=== PATIENT | female | born 1955 | race Caucasian/White ===

== ENCOUNTER → 2017-02-27 | Outpatient (CLI) | payer BC ==
[2016-03-08 14:53] VITALS: BP 153/91
--- NOTE | 2017-03-02 16:43 | MG ---
HISTORY: SCREENING Comparison: January 05, 2015 and February 10, 2016 FINDINGS: Bilateral CC and MLO projections of the right and left breast were obtained. Scattered fibroglandula r tissue is seen to be present without significant interval change. No suspicious architectural dist ortion, mass or clustered microcalcifications can be observed to suggest malignancy. No skin thicken ing or nipple retraction is appreciated. No pathological lymphadenopathy can be identified. Benign- appearing calcifications are noted within the right and left breast. IMPRESSION: NO RADIOGRAPHIC EVIDENCE OF MALIGNANCY. ACR CATEGORY 2 - benign findings. FOLLOW-UP EXAM 1 YEAR. Diagnostic CAD was utilized and reviewed. * 0 (ZERO) - ASSESSMENT INCOMPLETE; ADDITIONAL IMAGING IS NEEDED. * 1/1 (ONE) - NEGATIVE. * 2/II (TWO) - BENIGN FINDINGS. * 3/III (THREE) - PROBABLY BENIGN FINDING; SHORT INTERVAL FOLLOW-UP SUGGESTED. * 4/IV (FOUR) - SUSPICIOUS ABNORMALITY; BIOPSY SHOULD BE CONSIDERED. * 5/V (FIVE) - HIGHLY SUSPICIOUS OF MALIGNANCY; BIOPSY SHOULD BE PERFORMED. A NEGATIVE X-RAY REPORT SHOULD NOT DELAY BIOPSY IF A DOMINANT OR CLINICALLY SUSPICIOUS MASS IS PRESENT; 4 TO 8 PERCENT OF CANCERS ARE NOT IDENTIFIED BY X-RAY. A NEGA TIVE REPORT MAY REINFORCE THE CLINICAL IMPRESSION. ADENOSIS AND DENSE BREASTS MAY OBSCURE AN UNDERLY ING NEOPLASM. Reported By:
== END ==
LOC: RAD 14:09
PROVIDERS: ATTEND Obstetrics & Gynecology
DX: Z12.31 Encounter for screening mammogram for malignant neoplasm of breast (principal)
CPT/HCPCS: 77067

== ENCOUNTER → 2017-03-07 | Outpatient (CLI) | payer BC ==
[2016-03-08 14:53] VITALS: BP 153/91
--- NOTE | 2017-03-07 17:28 | RAD ---
HISTORY: Pain Study: Left foot series Comparison: 01/20/2015 Findings: There is a mildly displaced fracture along the mid and distal shaft of the 5th metatarsal bone . The joint spaces are intact. The tarsal bones are intact. The bones are osteopenic. IMPRESSION: Mildly displaced fracture along the distal 5th metatarsal bone. Reported By:
== END | disposition home or self-care (01) ==
LOC: RAD 16:28
PROVIDERS: ATTEND Nurse Practitioner Family
DX: M79.672 Pain in left foot (principal); R22.42 Localized swelling, mass and lump, left lower limb; S92.352A Displaced fracture of fifth metatarsal bone, left foot, initial encounter for closed fracture; X58.XXXA Exposure to other specified factors, initial encounter
CPT/HCPCS: 73630

== ENCOUNTER → 2017-03-10 | Outpatient (CLI) | payer BC ==
[2016-03-08 14:53] VITALS: BP 153/91
[2017-03-10 13:47] LABS: BASOPHILS # (AUTO) 0.1 X10^3/uL (0.0-0.1); BASOPHILS % (AUTO) 1.2 % (0.2-1.0); EOSINOPHILS # (AUTO) 0.3 x10^3/uL (0.0-0.2); EOSINOPHILS % (AUTO) 5.3 % (0.9-2.9); HEMATOCRIT 42.6 % (36.0-47.0); LYMPHOCYTES # (AUTO) 2.4 X10^3/uL (1.3-2.9); LYMPHOCYTES % (AUTO) 48.8 % (21.0-51.0); MEAN CORPUSCULAR HEMOGLOBIN 30.7 pg (27.0-34.0); MEAN CORPUSCULAR HGB CONC 35.2 g/dL (33.0-35.0); MEAN CORPUSCULAR VOLUME 87.2 fL (80.0-100.0); MEAN PLATELET VOLUME 7.5 fL (7.4-11.0); MONOCYTES # (AUTO) 0.3 x10^3/uL (0.3-0.8); NEUTROPHILS # (AUTO) 1.8 x10^3/uL (2.2-4.8); NEUTROPHILS % (AUTO) 37.7 % (42.0-75.0); PLATELET COUNT 303 X10^3/uL (150.0-450.0); RED BLOOD COUNT 4.88 X10^6/uL (3.5-5.4); RED CELL DISTRIBUTION WIDTH 13.2 % (11.6-16.5); WHITE BLOOD COUNT 4.8 X10^3/uL (3.6-10.0)
[2017-03-10 13:59] LABS: BLOOD UREA NITROGEN 15 mg/dL (7-18); CALCIUM 8.8 mg/dL (8.5-10.1); CARBON DIOXIDE 33.8 mmol/L (21-32); CHLORIDE 105 mmol/L (98-107); CREATININE 1.01 mg/dL (0.55-1.02); SODIUM 141 mmol/L (136-145); eGFR BLACK RACES > 60 (>60); eGFR NON BLACK RACES 59 (>60)
== END ==
LOC: LAB 13:31
PROVIDERS: ATTEND Podiatrist Foot & Ankle Surgery
DX: Z01.818 Encounter for other preprocedural examination (principal); Z01.811 Encounter for preprocedural respiratory examination; Z79.899 Other long term (current) drug therapy; S92.352A Displaced fracture of fifth metatarsal bone, left foot, initial encounter for closed fracture; X58.XXXA Exposure to other specified factors, initial encounter
CPT/HCPCS: 36415; 80048; 85025

== ENCOUNTER → 2017-05-11 | Outpatient (CLI) | payer BC ==
[2016-03-08 14:53] VITALS: BP 153/91
== END ==
LOC: LAB 15:58
PROVIDERS: ATTEND Podiatrist Foot & Ankle Surgery
DX: E55.9 Vitamin D deficiency, unspecified (principal)
CPT/HCPCS: 36415; 82306

== ENCOUNTER 2021-07-19 14:00 | Observation (INO) ==
[2021-07-19 14:13] VITALS: BMI 23.6
[2021-07-19 14:55] LABS: EOSINOPHILS # (AUTO) 0.2 x10^3/uL (0.0-0.2); EOSINOPHILS % (AUTO) 4.6 % (0.9-2.9); HEMOGLOBIN 14.9 g/dL (12.0-16.0); LYMPHOCYTES # (AUTO) 2.3 X10^3/uL (1.3-2.9); LYMPHOCYTES % (AUTO) 54.7 % (21.0-51.0); MEAN CORPUSCULAR HEMOGLOBIN 30.7 pg (27.0-34.0); MEAN CORPUSCULAR HGB CONC 34.8 g/dL (33.0-35.0); MEAN CORPUSCULAR VOLUME 88.2 fL (80.0-100.0); MEAN PLATELET VOLUME 7.2 fL (7.4-11.0); MONOCYTES # (AUTO) 0.3 x10^3/uL (0.3-0.8); NEUTROPHILS # (AUTO) 1.4 x10^3/uL (2.2-4.8); NEUTROPHILS % (AUTO) 32.7 % (42.0-75.0); PLATELET COUNT 321 X10^3/uL (150.0-450.0); RED BLOOD COUNT 4.87 X10^6/uL (3.5-5.4); RED CELL DISTRIBUTION WIDTH 13.1 % (11.6-16.5); WHITE BLOOD COUNT 4.2 X10^3/uL (3.6-10.0)
--- NOTE | 2021-07-19 15:00 | RAD ---
HISTORYShortness of breathSTUDYChest AP [id number]/16/2021FINDINGSHear t size is normal. Mony are normal. Aorta is calcified. Lung hartmann are clear. No pleural effusions are identified. Bony thorax is unremarkable.IMPRESSIONNo significant abnormality identifiedElectronically signed by: VON RICHARDSON (Jul 19, 2021 14:59:01)
[2021-07-19 15:17] LABS: ALANINE AMINOTRANSFERASE 28 Units/L (12-78); ALBUMIN 3.6 g/dL (3.4-5.0); ALKALINE PHOSPHATASE 49 Units/L (46-116); ASPARTATE AMINO TRANSFERASE 17 Units/L (15-37); BLOOD UREA NITROGEN 15 mg/dL (7-18); CALCIUM 9.2 mg/dL (8.5-10.1); CARBON DIOXIDE 27.1 mmol/L (21-32); CHLORIDE 104 mmol/L (98-107); CKMB % 1.8 % (<4); COR NA(FOR HYPERGLY) 141 mmol/L (136-145); CREATINE KINASE 79 Units/L (26-192); CREATINE KINASE MB 1.4 ng/mL (0-4.0); CREATININE 0.87 mg/dL (0.55-1.02); SODIUM 140 mmol/L (136-145); TOTAL PROTEIN 7.2 g/dL (6.4-8.2); eGFR NON BLACK RACES > 60 (>60)
--- NOTE | 2021-07-19 15:18 | DR.GENAD ---
HPI Time Seen Time Seen by Provider: 07/19/21 15:17 PCP Primary Care Physician: MAR GUZMAN HPI Comment HPI Comment: PATIENT IS 65YR OLD FEMALE IN ER WITH INCREASING SOB AND LEFT ARM SORENESS AND SOB WITH DIZZINESS FOR FEW DAYS. NO FEVER, DYSURIA OR DIARRHEA. Complaint/Symptoms Chief Complaint Doctors Comments: SORENESS LEFT ARM AND INCREASIN SOB THIS WEEK THIS WEEK. Chief Complaint:: THROAT FEELING NUMB AND THEN FEELING BAD. LIGHT HEADED AND PAIN TO THE ARM. PT WAS NOTED TO BE HYPERVENTILATING IN WAITING ROOM. AND FINGERS WERE KRISHNA. INCREASED SHORTNESS OF BREATH THIS WEEK WITH SORENESS TO THE LEFT ARM. COVID-19 Coronavirus risk:travel/contact w/high risk person: No Has patient experienced Coronavirus symptoms: No Nurses notes reviewed Nurses Notes Review: No Source History Provided: Patient Mode of Arrival Mode of Arrival: Ambulatory Timing Onset of Chief Complaint: 07/19/21 Came on: Suddenly Duration Duration: Constant Duration: Days Modifying Factors Worsens:: EXERTION. Improves:: REST. PMH PMH Past Medical History: Yes Past Medical History: Hypertension Past Surgical History: Yes Surgical History: Ortho Surgery Family History History of Family Medical Conditions: Yes Family Medical History: Cancer, Coronary Artery Disease, Heart Failure and Hypertension Social History Alcohol Use: None Do you use any recreational Drugs:: No Lives With: Family Lives Where: Home Travel Risk Coronavirus risk:travel/contact w/high risk person: No Has patient experienced Coronavirus symptoms: No Infectious screening In the last 2 months have you had wt loss of >10#?: NO Have you had fever, night sweats or hemotysis?: No Have you traveled outside the country in the last 6 months?: No Isolation: Standard ROS Review of Systems Constitutional: See HPI, Weakness and Fatigue; negative Fever Eyes: No Symptoms Reported and See HPI ENTM: See HPI, Nose Discharge and Nose Congestion Respiratoy: See HPI, Moist Cough and Short of Breath; negative Wheezing Cardiovascular: No Symptoms Reported and See HPI; negative Chest Pain Gastrointestinal/Abdominal: No Symptoms Reported and Abdominal Pain; negative Diarrhea and Vomiting Genitourinary: No Symptoms Reported and See HPI; negative Dysuria, Frequency and Hematuria Neurological: No Symptoms Reported, See HPI, Headache, Weakness and Dizziness Musculoskeletal: No Symptoms Reported and See HPI; negative Back Pain and Muscle Pain Integumentary: No Symptoms Reported and See HPI; negative Rash and Juandice Hematologic/Lymphatic: No Symptoms Reported and See HPI; negative Easy Bruising Endocrine: No Symptoms Reported and See HPI Psychiatric: No Symptoms Reported and See HPI All Other Systems: Reviewed and Negative PE Vital Signs Vitals: Temperature 96.4 F Pulse Rate 70 Respiratory Rate 18 Blood Pressure [Right Arm] 118/67 Blood Pressure 133/72 O2 Sat by Pulse Oximetry 98 General Limitations: No Limitations General Appearance: Alert and In No Apparent Distress Head Head Exam: Normal Inspection Eyes Eye exam: Normal Appearance and PERRL; negative Scleral Icterus and Conjunctival Injection ENT ENT Exam: Normal Exam, Normal Oropharynx, Normal External Ear Exam and TM's Normal Bilaterally External Ear Exam: Normal External Inspection; negative Mastoid Tenderness TM/Canal Exam: Bilateral: Normal Nose Exam: Normal Nose Exam and Other (NONE NOTED.) Mouth Exam: Normal Inspection; negative Lip Swelling and Tongue Swelling Throat Exam: Normal Inspection; negative Tonsillar Erythema, Tonsillomegaly and Tonsillar Exudate Neck Neck Exam: Normal Inspection and Trachea Midline; negative Tenderness Chest Chest Inspection: Normal Inspection and Symmetric Chest Wall Rise; negative Tenderness Respiratory Respiratory Exam: Normal Lung Sounds Bilat; negative Accessory Muscle Use, Chest Wall Tenderness and Respiratory Distress Respiratory Exam: Bilateral: Clear to Auscultation Cardiovascular Cardiovascular Exam: Regular Rate, Normal Rhythm and Normal Heart Sounds; negative Systolic Murmur and Diastolic Murmur Abdominal Exam Abdominal Exam: Normal Inspection, Normal Bowel Sounds and Soft; negative Tenderness Extremities Extremities Exam: Normal Inspection and Normal Capillary Refill Back Back Exam: Normal Inspection; negative (R) CVA Tenderness and (L) CVA Tenderness Neurologic Neurological Exam: Alert and Oriented X3; negative Motor Sensory Deficit Psychiatric Psychiatric Exam: Normal Affect and Normal Mood Skin Skin Exam: Warm, Dry, Intact and Normal Color MDM Differential Diagnosis Differential Diagnosis: CHEST PAIN, LEFT ARM PAIN, WEAHNESS, DIZZINESS. COURSE Treatment Treatment: SEE ORDERS. Consultation Consultation Comments: DISCUSSED PATIENT WITH DR. HERNANDEZ. HE WILL ADMIT PATIENT. ROR Labs Reviewed Laboratory Results Reviewed?: Yes Result Diagrams: 07/20/21 05:10 07/20/21 05:10 Laboratory: WBC 4.2 X10^3/uL (3.6-10.0) 07/19/21 14:45 RBC 4.87 X10^6/uL (3.5-5.4) 07/19/21 14:45 Hgb 14.9 g/dL (12.0-16.0) 07/19/21 14:45 Hct 43.0 % (36.0-47.0) 07/19/21 14:45 MCV 88.2 fL (80.0-100.0) 07/19/21 14:45 MCH 30.7 pg (27.0-34.0) 07/19/21 14:45 MCHC 34.8 g/dL (33.0-35.0) 07/19/21 14:45 RDW 13.1 % (11.6-16.5) 07/19/21 14:45 Plt Count 321 X10^3/uL (150.0-450.0) 07/19/21 14:45 MPV 7.2 fL (7.4-11.0) L 07/19/21 14:45 Neut % (Auto) 32.7 % (42.0-75.0) L 07/19/21 14:45 Lymph % (Auto) 54.7 % (21.0-51.0) H 07/19/21 14:45 [place] % (Auto) 7.0 % (0.0-13.0) 07/19/21 14:45 Eos % (Auto) 4.6 % (0.9-2.9) H 07/19/21 14:45 Baso % (Auto) 1.0 % (0.2-1.0) 07/19/21 14:45 Neut # (Auto) 1.4 x10^3/uL (2.2-4.8) L 07/19/21 14:45 Lymph # (Auto) 2.3 X10^3/uL (1.3-2.9) 07/19/21 14:45 [place] # (Auto) 0.3 x10^3/uL (0.3-0.8) 07/19/21 14:45 Eos # (Auto) 0.2 x10^3/uL (0.0-0.2) 07/19/21 14:45 Baso # (Auto) 0.0 X10^3/uL (0.0-0.1) 07/19/21 14:45 Absolute Nucleated RBC 0.1 /100WBC 07/19/21 14:45 D-Dimer 0.56 ug/ml (0.0-0.57) 07/19/21 14:45 Sodium 140 mmol/L (136-145) 07/19/21 14:45 Corrected Sodium 141 mmol/L (136-145) 07/19/21 14:45 Potassium 4.2 mmol/L (3.5-5.1) 07/19/21 14:45 Chloride 104 mmol/L (98-107) 07/19/21 14:45 Carbon Dioxide 27.1 mmol/L (21-32) 07/19/21 14:45 BUN 15 mg/dL (7-18) 07/19/21 14:45 Creatinine 0.87 mg/dL (0.55-1.02) 07/19/21 14:45 Est GFR (MDRD) Af Amer > 60 (>60) 07/19/21 14:45 Est GFR (MDRD) Non-Af > 60 (>60) 07/19/21 14:45 Glucose 131 mg/dL (65-99) H 07/19/21 14:45 Calcium 9.2 mg/dL (8.5-10.1) 07/19/21 14:45 Corrected Calcium TNP 07/19/21 14:45 Total Bilirubin 0.40 mg/dL (0.2-1.0) 07/19/21 14:45 AST 17 Units/L (15-37) 07/19/21 14:45 ALT 28 Units/L (12-78) 07/19/21 14:45 Alkaline Phosphatase 49 Units/L (46-116) 07/19/21 14:45 Creatine Kinase 85 Units/L (26-192) 07/19/21 17:35 CK-MB (CK-2) 1.2 ng/mL (0-4.0) 07/19/21 17:35 CK/CKMB % Calc 1.4 % (<4) 07/19/21 17:35 Troponin I High Sens 5.2 ng/L (4.0-60.0) 07/19/21 17:35 B-Natriuretic Peptide 9.5 pg/mL (0-79) 07/19/21 14:45 Total Protein 7.2 g/dL (6.4-8.2) 07/19/21 14:45 Albumin 3.6 g/dL (3.4-5.0) 07/19/21 14:45 Globulin 3.6 g/dL (2.5-4.5) 07/19/21 14:45 Albumin/Globulin Ratio 1.0 Ratio (1.1-2.1) L 07/19/21 14:45 Specimen Type Clean catch urine 07/19/21 16:21 Urine Color Straw (YELLOW) 07/19/21 16:21 Urine Appearance Clear (CLEAR) 07/19/21 16:21 Urine pH 7.0 (5.0 - 8.0) 07/19/21 16:21 Ur Specific [place] 1.005 (1.000-1.030) 07/19/21 16:21 Urine Protein Negative (NEGATIVE) 07/19/21 16:21 Urine Glucose (UA) Negative (NEGATIVE) 07/19/21 16:21 Urine Ketones Negative (NEGATIVE) 07/19/21 16:21 Urine Occult Blood Negative (NEGATIVE) 07/19/21 16:21 Urine Nitrite Negative (NEGATIVE) 07/19/21 16:21 Urine Bilirubin Negative (NEGATIVE) 07/19/21 16:21 Urine Urobilinogen Normal (NORMAL) 07/19/21 16:21 Ur Leukocyte Esterase Negative (NEGATIVE) 07/19/21 16:21 SARS CoV-2 RNA Rapid BRENDAN Negative (NEGATIVE) 07/19/21 15:08 XRAY XRAY Interpreted by: Radiologist (REPORT NOTED AND DISCUSSED WITH PATIENT.) and Self EKG Rate: 62 [place]: Normal Rhythm: NSR Block: None Hypertrophy: LAE ST: Old, Inf and Infarct Opioid Opioid Risk Tool Age (Elbert box if 16-45): No History of Preadolescent Sexual Abuse: No Total: 0 Total Score Risk Category: Low Risk Copyright: Handy CARLOS predicting aberrant behaviors Diagnosis Discharge Problem: Chest pain Qualifiers: Chest pain type: unspecified Qualified Code(s): R07.9 - Chest pain, unspecified Arm pain Qualifiers: Laterality: left Qualified Code(s): M79.602 - Pain in left arm Instructions Instructions: Nonspecific Chest Pain, Adult, [id number] Hypertension, Adult, [id number] Form - Blood Pressure Record Sheet Managing Your Hypertension Forms: Excuse From Work or School Precautions for COVID19 [facility] Social Distancing
[2021-07-19 17:39] LABS: BILIRUBIN,URINE NEGATIVE (NEGATIVE); BLOOD/HEMOGLOBIN,URINE NEGATIVE (NEGATIVE); GLUCOSE, URINE NEGATIVE (NEGATIVE); KETONES,URINE NEGATIVE (NEGATIVE); LEUKOCYTE ESTERASE ,URINE NEGATIVE (NEGATIVE); NITRITES,URINE NEGATIVE (NEGATIVE); PROTEIN,URINE NEGATIVE (NEGATIVE); UROBILINOGEN,URINE NORMAL (NORMAL)
[2021-07-19 17:42] LABS: APPEARANCE,URINE CLEAR (CLEAR); COLOR,URINE STRAW (YELLOW)
[2021-07-19 18:05] LABS: CKMB % 1.4 % (<4); CREATINE KINASE MB 1.2 ng/mL (0-4.0)
[2021-07-19] MEDS ORDERED: MORPHINE SULFATE INJ 2 MG INJ IVP PRN (19:07)
[2021-07-19] MEDS ORDERED: NS 1,000 ML IV 1,000 ML IV SCH (19:07)
[2021-07-19] MEDS ORDERED: NITROSTAT SL PRN (19:07)
[2021-07-19 20:17] LABS: BILIRUBIN,URINE NEGATIVE (NEGATIVE); BLOOD/HEMOGLOBIN,URINE 1+ (NEGATIVE); GLUCOSE, URINE NEGATIVE (NEGATIVE); KETONES,URINE NEGATIVE (NEGATIVE); LEUKOCYTE ESTERASE ,URINE 1+ (NEGATIVE); NITRITES,URINE NEGATIVE (NEGATIVE); PROTEIN,URINE NEGATIVE (NEGATIVE); UROBILINOGEN,URINE NORMAL (NORMAL)
[2021-07-19] MEDS ORDERED: ZESTRIL TAB 5 MG ONE (20:18)
[2021-07-19 20:28] LABS: APPEARANCE,URINE CLEAR (CLEAR); COLOR,URINE YELLOW (YELLOW); RBC,URINE 0-2 /HPF (0-3); SQUAMOUS EPITHELIAL CELL,UR RARE /HPF (NEGATIVE)
[2021-07-19 20:29] LABS: BACTERIA,URINE NEGATIVE /HPF (NEGATIVE)
[2021-07-19] MEDS ORDERED: ZESTRIL TAB 5 MG PO SCH (21:00)
[2021-07-19 23:18] LABS: CKMB % 1.4 % (<4); CREATINE KINASE 71 Units/L (26-192); CREATINE KINASE MB < 1.0 ng/mL (0-4.0)
[2021-07-20 06:17] LABS: BASOPHILS % (AUTO) 0.8 % (0.2-1.0); EOSINOPHILS # (AUTO) 0.3 x10^3/uL (0.0-0.2); HEMATOCRIT 41.4 % (36.0-47.0); HEMOGLOBIN 14.5 g/dL (12.0-16.0); LYMPHOCYTES # (AUTO) 2.3 X10^3/uL (1.3-2.9); LYMPHOCYTES % (AUTO) 49.2 % (21.0-51.0); MEAN CORPUSCULAR HEMOGLOBIN 30.7 pg (27.0-34.0); MEAN CORPUSCULAR VOLUME 87.8 fL (80.0-100.0); MEAN PLATELET VOLUME 7.7 fL (7.4-11.0); MONOCYTES # (AUTO) 0.4 x10^3/uL (0.3-0.8); MONOCYTES % (AUTO) 8.4 % (0.0-13.0); NEUTROPHILS # (AUTO) 1.7 x10^3/uL (2.2-4.8); NEUTROPHILS % (AUTO) 35.6 % (42.0-75.0); PLATELET COUNT 314 X10^3/uL (150.0-450.0); RED BLOOD COUNT 4.71 X10^6/uL (3.5-5.4); RED CELL DISTRIBUTION WIDTH 13.1 % (11.6-16.5); WHITE BLOOD COUNT 4.8 X10^3/uL (3.6-10.0)
[2021-07-20 06:35] LABS: ALANINE AMINOTRANSFERASE 23 Units/L (12-78); ALBUMIN 3.3 g/dL (3.4-5.0); ALKALINE PHOSPHATASE 45 Units/L (46-116); ASPARTATE AMINO TRANSFERASE 13 Units/L (15-37); BLOOD UREA NITROGEN 15 mg/dL (7-18); CALCIUM 8.8 mg/dL (8.5-10.1); CARBON DIOXIDE 27.1 mmol/L (21-32); CHLORIDE 106 mmol/L (98-107); CHOL/HDL RATIO 3.8 (0.0-5.0); CHOLESTEROL 192 mg/dL (0-200); CKMB % 1.6 % (<4); COR CA(FOR HYPOALB) 9.4 mg/dL (8.5-10.1); CREATINE KINASE 67 Units/L (26-192); CREATINE KINASE MB 1.1 ng/mL (0-4.0); CREATININE 0.79 mg/dL (0.55-1.02); HDL CHOLESTEROL 50 mg/dL (40-60); SODIUM 143 mmol/L (136-145); TOTAL PROTEIN 6.6 g/dL (6.4-8.2); TRIGLYCERIDES 79 mg/dL (0-150); eGFR NON BLACK RACES > 60 (>60)
[2021-07-20] MEDS ORDERED: ASPIRIN PO SCH (09:00)
[2021-07-20] MEDS ORDERED: ZESTRIL TAB 5 MG PO SCH (09:00)
[2021-07-20 12:25] VITALS: BP 130/62
--- NOTE | 2021-07-27 10:28 | DR.H&P ---
H&P - History & Physical for Day of: H&P Date: 07/19/21 - Chief Complaint Chief Complaint: sob left arm pain - History of Present Illness History of Present Illness: Patient is a 65 year old female who was admitted due to sob and left arm pain. Patient reports the feeling lasted a few hours but has since gone away. PMH HTN. Denies syncope, chest pain or any other conditions. PCP Dr. Freire. - Past Medical History Past Medical History: Hypertension - Past Surgical History Surgical History: Ortho Surgery - Family History Family Medical History: Cancer, Coronary Artery Disease, Heart Failure, Hypertension - Social History Does patient currently use any type of tobacco product: No Have you used tobacco products in the last 12 months: No Type of Tobacco Use: None Does any household member use tobacco: No Alcohol Use: None Drug Use: None - Medications Home Medications: Sulfa (Sulfonamide Antibiotics) [SULFA] Allergy (Verified 07/19/21 14:06) CONTINUE taking the following medications loratadine-pseudoephedrine [Claritin-D 24 Hour] 1 tab PO DAILY 07/19/21 [History] - Review of Systems Constitutional: See HPI Eyes: See HPI ENT: See HPI Respiratory: See HPI Cardiovascular: See HPI Gastrointestinal: See HPI Genitourinary: See HPI Musculoskeletal: See HPI Skin: See HPI Neurological: See HPI - Physical Exam Vital Signs: Temperature 97.5 F Pulse Rate [Left] 56 Pulse Rate 70 Respiratory Rate 20 Blood Pressure [Left Arm] 130/62 Blood Pressure [Right Arm] 118/67 Blood Pressure 133/72 O2 Sat by Pulse Oximetry 99 Oriented: Normal, Time, Person, Place Eyes: Normal Ear: Normal Nose: Normal Throat: Normal Respiratory: Clear Throughout Cardiovascular: Normal : Normal Auscultation: Bowel Sounds: Normal Palpation: Normal Tenderness: Normal Skin: Normal Musculoskeletal: Normal Psychiatric: Normal Mood Description: Calm Affect: Normal Speech Pattern: Clear, Appropriate - Assessment/Plan (1) Dyspnea Status: Acute (2) Arm pain Qualifiers: Laterality: left Qualified Code(s): M79.602 - Pain in left arm Status: Resolved (3) Chest pain Qualifiers: Chest pain type: unspecified Qualified Code(s): R07.9 - Chest pain, unspecified Status: Acute Plan: r/o ischemia. Serial cardiacs and EKGs. ASA. SL. Pain control (4) Hypertension Status: Chronic - Allergies Allergies/Adverse Reactions: Allergies Allergy/AdvReac Type Severity Reaction Status Date / Time Sulfa (Sulfonamide Allergy Verified 07/19/21 14:06 Antibiotics) [SULFA]
--- NOTE | 2021-07-27 10:31 | W.DIS.FURT ---
Discharge Plan - Discharge Plan Hospital Course: Admit date 07/19/21 Discharge date 07/20/21 DOS 07/20/21 Admit diagnosis Chest pain, HTN, Left arm pain, Dyspnea Discharge diagnosis: Same Hospital Course Patient is a 65 year old female who was admitted due to dyspnea and left arm pain with PMH HTN. Patient reports symptoms resolved after treatment in ER. Patient denies any new or concerning symptoms. Cardiac enzymes negative, EKGs negative for ischemia. Patient discharged home to follow up with PCP in office. Discharge time>35 mins Disposition: 01 HOME, SELF-CARE Condition: Stable Health Concerns: Post Hospitalization: new medications and changes needed to prevent readmission or further decline. Pt educated and given instructions on all concerns. Care Plan Goals: Problem: Cardiac Complications Goal: Early Recognition of cardiac complications for prompt intervention Instructions: Follow provided instructions. Follow up with primary physician as directed. Contact primary care physician or report to the closest Emergency Room if condition worsens. Plan of Treatment: Continue with present treatment and follow up plan. Pt is to keep follow up appointment as instructed and take medications as ordered. Assessment: No acute distress noted at time of discharge. Prescriptions: Continued lisinopril 5 mg tablet 5 mg PO HS loratadine-pseudoephedrine [Claritin-D 24 Hour] 10-240 mg Tablet Extended Release 24 Hr 1 tab PO DAILY - Orders to Discharge Patient Discharge Orders: Discharge (Routine); Ordered 07/20/21 Ordered By: ANGEL HERNANDEZ - Follow ups/Referrals Follow ups/Referrals: MAR GUZMAN [Primary Care Provider] - 07/27/21 2:30 pm - Instructions Instructions: Nonspecific Chest Pain, Adult, [id number], Hypertension, Adult, [id number], Form - Blood Pressure Record Sheet, Managing Your Hypertension
== END 2021-07-20 12:05 | disposition home or self-care (01) ==
LOC: ER 14:00 → MED/SURG 14:00
PROVIDERS: ADMIT Internal Medicine; ATTEND Internal Medicine
DX: R06.02 Shortness of breath; I10 Essential (primary) hypertension; R73.09 Other abnormal glucose; M79.602 Pain in left arm; R94.31 Abnormal electrocardiogram [ECG] [EKG]; R07.89 Other chest pain; Z20.822 Contact with and (suspected) exposure to COVID-19